=== PATIENT | female | born 1950 | race Caucasian/White ===

== ENCOUNTER 2018-10-09 21:04 | Inpatient (IN) | payer MEDICARE ==
[~2018-10-09] VITALS: Ht 172.7 cm; Wt 79.5 kg
[2018-10-09] MEDS ORDERED: NORepinephrine 8mg/ 250ml NS 250 ML IV PRN ×2 (21:18→22:23)
[2018-10-09] MEDS ORDERED: vancomycin/NS 1 GM ADD-VANTAGE 250 ML IV ONE (21:40)
[2018-10-09] MEDS ORDERED: albumin (human) 25% 100 ML IV solution IV ONE (22:15)
[2018-10-09] MEDS ORDERED: hydrocortisone sod succ/PF 100mg/2ml inj. IV STA (22:16)
[2018-10-09] MEDS ORDERED: normal saline 1000ml 1,000 ML IV PRN (22:23)
[2018-10-09] MEDS ORDERED: morphine 2 MG/ML inj. syringe IV PRN (22:25)
[2018-10-09] MEDS ORDERED: ondansetron/PF 4mg/2ml inj IV PRN (22:25)
[2018-10-09] MEDS ORDERED: acetaminophen 325mg tablet PO PRN ×2 (22:25)
[2018-10-09] MEDS ORDERED: potassium Cl 20mEq/100mL bag 100 ML IV PRN ×2 (22:25)
[2018-10-09] MEDS ORDERED: morphine 4 MG/ML inj SYRINge IV PRN (22:25)
[2018-10-09] MEDS: K, MAG and/or Phos replacement - Verify level? MC SCH (22:25)
[2018-10-09] MEDS ORDERED: potassium Cl 20 mEq SR tablet PO PRN ×2 (22:25)
[2018-10-09 22:39] LABS: ALANINE AMINOTRANSFERASE 60 U/L (12-78); ALBUMIN/GLOBULIN RATIO 0.7 (1.1-1.5); ALKALINE PHOSPHATASE 50 IU/L (46-116); ANION GAP 9 (8-16); ASPARTATE AMINO TRANSFERASE 106 U/L (10-37); BILIRUBIN,TOTAL 0.6 MG/DL (0.1-1.0); BLOOD UREA NITROGEN 15 MG/DL (7-18); BUN/CREATININE RATIO 24.2 (6.6-38.0); CALCIUM 7.5 MG/DL (8.5-10.1); CHLORIDE 87 MMOL/L (99-107); CREATININE 0.62 MG/DL (0.40-0.90); GLUCOSE 95 MG/DL (70-104); POTASSIUM 3.4 MMOL/L (3.5-5.1); TOTAL CARBON DIOXIDE 21.9 MMOL/L (24-32); eGFR > 90 ML/MIN
[2018-10-09 22:44] LABS: SODIUM 118 MMOL/L (135-145)
[2018-10-09] MEDS: normal saline 1000ml 1,000 ML IV SCH (22:47)
--- NOTE | 2018-10-09 23:00 | NUR ---
recieved report from ruth PRINCE stated he will be up in 30 minutes after taking pictures of patients wounds
[2018-10-09 23:57] LABS: HEMOGLOBIN A1C 4.8 % (4.5-6.2)
[2018-10-10] VITALS (23 sets, daily range): BP systolic 91–149; BP diastolic 40–79
--- NOTE | 2018-10-10 00:15 | NUR ---
Patient in room ICU 2044. I have received report from STOCKLAYER and had the opportunity to ask questions and assume patient care along with Adalberto PRINCE.
--- NOTE | 2018-10-10 01:14 | NUR ---
patient had bed bath dressings applied to wounds with cream blankets on rr even un labored no observable s/s of acute stress at this time
[2018-10-10] MEDS ORDERED: ENAL20TA PO (01:58)
[2018-10-10] MEDS: hydrocortisone sod succ/PF 100mg/2ml inj. IV SCH ×4 (02:14→21:51)
[2018-10-10 03:39] LABS: BASOPHILS # (AUTO) 0.3 X10'3 (0-0.2); BASOPHILS % (AUTO) 1.4 % (0-1); EOSINOPHILS % (AUTO) 0 % (0-6); HEMATOCRIT 35.1 % (35.0-45.0); HEMOGLOBIN 12.1 g/dl (12.0-16.0); LYMPHOCYTES # (AUTO) 0.3 X10'3 (1.1-4.8); LYMPHOCYTES % (AUTO) 1.6 % (21-51); MEAN CORPUSCULAR HEMOGLOBIN 38.7 PG (27.0-31.0); MEAN CORPUSCULAR HGB CONC 34.3 g/dL (33.0-36.5); MEAN CORPUSCULAR VOLUME 112.6 FL (78-98); MEAN PLATELET VOLUME 9.3 FL (7.4-10.4); MONOCYTES # (AUTO) 0.5 X10'3 (0-0.9); MONOCYTES % (AUTO) 2.5 % (2-12); NEUTROPHILS # (AUTO) 17.2 X10'3 (1.8-7.7); NEUTROPHILS % (AUTO) 94.5 % (42-75); PLATELET COUNT 248 X10'3 (140-440); RED BLOOD COUNT 3.12 X10'6 (4.20-5.60); RED CELL DISTRIBUTION WIDTH 14.6 % (11.5-14.5); WHITE BLOOD COUNT 18.2 X10'3 (4.5-11.0)
[2018-10-10 03:51] LABS: ALANINE AMINOTRANSFERASE 55 U/L (12-78); ALBUMIN/GLOBULIN RATIO 1.2 (1.1-1.5); ALKALINE PHOSPHATASE 41 IU/L (46-116); ANION GAP 9 (8-16); ASPARTATE AMINO TRANSFERASE 95 U/L (10-37); BILIRUBIN,TOTAL 0.9 MG/DL (0.1-1.0); BLOOD UREA NITROGEN 11 MG/DL (7-18); BUN/CREATININE RATIO 20.4 (6.6-38.0); CALCIUM 7.9 MG/DL (8.5-10.1); CHLORIDE 96 MMOL/L (99-107); CREATININE 0.54 MG/DL (0.40-0.90); GLUCOSE 112 MG/DL (70-104); MAGNESIUM 1.7 MG/DL (1.5-2.4); PHOSPHORUS 3.3 MG/DL (2.3-4.5); POTASSIUM 3.4 MMOL/L (3.5-5.1); SODIUM 128 MMOL/L (135-145); TOTAL CARBON DIOXIDE 23.2 MMOL/L (24-32); TOTAL PROTEIN 5.5 G/DL (6.4-8.2); eGFR > 90 ML/MIN
[2018-10-10 04:14] LABS: PLATELET ESTIMATE NORMAL
[2018-10-10 04:15] LABS: LARGE PLATELETS FEW
[2018-10-10] MEDS: normal saline 1000ml 1,000 ML IV SCH (05:28)
[2018-10-10] MEDS: sodium chloride 0.45% 1,000 ML IV SCH ×2 (05:37→23:48)
--- NOTE | 2018-10-10 06:07 | NUR ---
patient has been observably resting well, eyes closed rr even un labored no s/s of acute stress at this time
--- NOTE | 2018-10-10 06:32 | NUR ---
SBAR OFF TO AZEB RN REPRIORITIZED PATIENTS NEEDS AND DX NO QUESTIONS OR CONCERNS FROM AZEB RN AFTER REPORT
--- NOTE | 2018-10-10 06:35 | NUR ---
Patient in room ICU 2044. I have received report from Adalberto PRINCE and had the opportunity to ask questions and assume patient care.
--- NOTE | 2018-10-10 06:40 | NUR ---
Problems reprioritized. Patient report given, questions answered & plan of care reviewed with Jeni PRINCE.
[2018-10-10] MEDS: K, MAG and/or Phos replacement - Verify level? MC SCH (07:21)
[2018-10-10] MEDS: pantoprazole 40mg Tablet.DR PO SCH (07:56)
[2018-10-10] MEDS: vancomycin/NS 1 GM ADD-VANTAGE 250 ML IV SCH ×2 (07:56→16:09)
[2018-10-10] MEDS: heparin, porcine 5000 units/ml vial SQ SCH ×2 (07:57→21:52)
[2018-10-10] MEDS ORDERED: pneumococcal 23-VAL P-sac vacc 25 mcg/0.5ml vial IMVAC ONE (10:00)
[2018-10-10] MEDS ORDERED: magnesium 2GM in 50ml NS 50 ML IV ONE (10:05)
[2018-10-10] MEDS ORDERED: thiamine inj. 100 MG in normal saline 100ml IV soln 99 ML IV ONE (10:05)
[2018-10-10 10:25] LABS: ALBUMIN 2.5 G/DL (3.4-5.0); ANION GAP 11 (8-16); BLOOD UREA NITROGEN 8 MG/DL (7-18); BUN/CREATININE RATIO 17.8 (6.6-38.0); CALCIUM 7.4 MG/DL (8.5-10.1); CHLORIDE 103 MMOL/L (99-107); CREATININE 0.45 MG/DL (0.40-0.90); GLUCOSE 112 MG/DL (70-104); SODIUM 136 MMOL/L (135-145); TOTAL CARBON DIOXIDE 21.9 MMOL/L (24-32); eGFR > 90 ML/MIN
[2018-10-10 10:33] LABS: PHOSPHORUS 2.3 MG/DL (2.3-4.5); POTASSIUM 3.9 MMOL/L (3.5-5.1)
[2018-10-10] MEDS: MVI, adult No.4 with vit. K 10 ML in dextrose 5% water 500ml 490 ML IV SCH ×2 (10:52)
--- NOTE | 2018-10-10 10:55 | NUR ---
Ye Catheter D/C'd, patient tolerated well.
[2018-10-10 11:05] LABS: CLARITY,URINE SLIGHTLY CLOUDY (Clear); GLUCOSE, URINE NEGATIVE (Neg); KETONES,URINE >=80 mg/dl (Neg); LEUKOCYTE ESTERASE ,URINE NEGATIVE (Neg); NITRITES, URINE NEGATIVE (Neg); OCCULT BLOOD,URINE SMALL (Neg); PH,URINE 5.5 (4.8-8.0); PROTEIN,URINE NEGATIVE (Neg); UROBILINOGEN,URINE 0.2 E.U/dL (0.2-1.0)
[2018-10-10 11:15] LABS: COLOR,URINE DARK YELLOW (Yellow); UA COLLECTION TYPE NON-SPECIFIED
[2018-10-10 11:17] LABS: BACTERIA,URINE 1+ /HPF (Neg); RBC,URINE 0-2 /HPF (0-2); WBC,URINE 0-4 /HPF (0-4)
[2018-10-10 11:18] LABS: AMORPHOUS URATES 1+; MUCUS STRANDS FEW /LPF (Neg); SQUAMOUS EPITHELIAL CELL,UR MODERATE /LPF (FEW); TRANSITIONAL EPI CELLS,URINE FEW /HPF
--- NOTE | 2018-10-10 12:10 | NUR ---
Wound consult: Pt admit w/ septic shock and cellulitis/IAD to sacrum/butt. No open wounds noted. Pt found down at home in urine/feces unable to move past 2 weeks r/t weakness. DX septic shock. Per MD pt lost SO 1 week ago. Pt reports only drinking boxed wine for intake past 2 weeks. MCV 112.6 to start banana bag today per MD for etoh protocol. Na 128 up from 118 on admit. Pt advanced to regular diet from NPO w/ LBM 10/10. Will continue to monitor for additional protein needs and PO tolerance on etoh withdrawal protocol. Rec: 1. continue regular diet 2. monitor for additional protein needs pending PO 3. wt per rx Addendum: 10/10/18 at [address] Amended: Links added.
--- NOTE | 2018-10-10 13:44 | NUR ---
PRESSURE ULCER EDUCATION: DEFINITION: A pressure ulcer is an area of skin that breaks down when you stay in one position too long. The constant pressure against the skin reduces the blood flow to that area and the affected tissue dies. CAUSES: "Being bedridden or in a wheelchair "Fragile skin "Having a chronic condition, such as diabetes or vascular disease "Inability to move certain parts of your body without assistance "Older age "Incontinence of urine or stool SYMPTOMS: "A reddened area that DOES NOT turn white when pressed on - this can be the beginning of a pressure ulcer "A blister, deep sore or a crater - these can be advanced pressure ulcers FIRST AID: "Relieve the pressure on this area "Keep the area clean and dry "Call your primary doctor if you see any of the above symptoms "DO NOT massage the area "DO NOT use a donut shaped or ring shaped pillow- these actually interfere with the blood flow and cause complications PREVENTION: "Check for pressure ulcers everyday "Change position at least every two hours to relieve pressure "Use items that help relieve pressure- pillows, sheepskin, foam padding, and powders. "Keep skin clean and dry "Eat healthy well balanced meals "Exercise daily IF YOU SEE ANY OF THESE SYMPTOMS WHILE IN THE HOSPITAL - TELL YOUR NURSE IMMEDIATELY. IF YOU SEE ANY OF THESE SYMPTOMS WHILE AT HOME OR HAVE ANY QUESTIONS OR CONCERNS ABOUT PRESSURE ULCERS - CALL YOUR PRIMARY DOCTOR IMMEDIATELY. Addendum: 10/10/18 at 1344 by Maritza Servin RN Amended: Links added.
--- NOTE | 2018-10-10 14:25 | NUR ---
Patient is A&Ox4 at this time, blood pressure tolerating on it's own relatively well. Pressors have been shut off since 0900 and pressures are still systolically 90-110s.
--- NOTE | 2018-10-10 16:12 | NUR ---
Patient had an incident of incontinence, however she states that she still feels pressure. Bladder scanned and 296mL retained.
[2018-10-10 16:25] LABS: ALBUMIN 2.3 G/DL (3.4-5.0); ANION GAP 5 (8-16); BLOOD UREA NITROGEN 10 MG/DL (7-18); BUN/CREATININE RATIO 17.9 (6.6-38.0); CALCIUM 7.7 MG/DL (8.5-10.1); CHLORIDE 99 MMOL/L (99-107); CREATININE 0.56 MG/DL (0.40-0.90); GLUCOSE 225 MG/DL (70-104); PHOSPHORUS 1.6 MG/DL (2.3-4.5); POTASSIUM 3.4 MMOL/L (3.5-5.1); SODIUM 130 MMOL/L (135-145); TOTAL CARBON DIOXIDE 26.2 MMOL/L (24-32); eGFR > 90 ML/MIN
[2018-10-10] MEDS ORDERED: CefTRIAXone 2gm/D5W 50ml 50 ML IV SCH (18:00)
--- NOTE | 2018-10-10 18:30 | NUR ---
Patient in room ICU 2044. I have received report from Jeni PRINCE and had the opportunity to ask questions and assume patient care along with Adalberto PRINCE.
--- NOTE | 2018-10-10 18:32 | NUR ---
Problems reprioritized. Patient report given, questions answered & plan of care reviewed with Adalberto PRINCE and Mariza PRINCE.
--- NOTE | 2018-10-10 18:46 | NUR ---
assumed care and report from candelaria durán
--- NOTE | 2018-10-10 18:47 | NUR ---
patient currently eating dinner no s/s of acute stress at this time
--- NOTE | 2018-10-10 19:55 | NUR ---
PATIENT ON BED GOYAL CALL LIGHT IN REACH NO OBSERVABLE S/S OF ACUTE STRESS AT THIS TIME
--- NOTE | 2018-10-10 20:45 | NUR ---
PATIENT COMPLAINING OF BLADDER PAIN, BLADDER SCANNER SHOWED 737mL STRAIGHT CATHED 700 OUTPUT
[2018-10-10 21:18] LABS: ALBUMIN 2.2 G/DL (3.4-5.0); ANION GAP 5 (8-16); BLOOD UREA NITROGEN 10 MG/DL (7-18); BUN/CREATININE RATIO 20.4 (6.6-38.0); CALCIUM 7.4 MG/DL (8.5-10.1); CHLORIDE 103 MMOL/L (99-107); CREATININE 0.49 MG/DL (0.40-0.90); GLUCOSE 120 MG/DL (70-104); PHOSPHORUS 1.5 MG/DL (2.3-4.5); POTASSIUM 3.5 MMOL/L (3.5-5.1); SODIUM 134 MMOL/L (135-145); TOTAL CARBON DIOXIDE 25.6 MMOL/L (24-32); eGFR > 90 ML/MIN
[2018-10-10] MEDS: lactobacillus rhamnosus 10,000 MMU CELLS/CAPSULE PO SCH (21:52)
[2018-10-10] MEDS ORDERED: VANCOMYCIN LEVEL IV NR (23:30)
[2018-10-11] VITALS (24 sets, daily range): BP systolic 90–125; BP diastolic 47–76
[2018-10-11] MEDS: vancomycin/NS 1 GM ADD-VANTAGE 250 ML IV SCH ×2 (00:21→08:24)
[2018-10-11] MEDS: hydrocortisone sod succ/PF 100mg/2ml inj. IV SCH ×4 (02:12→19:57)
[2018-10-11 03:27] LABS: BASOPHILS % (AUTO) 0.1 % (0-1); EOSINOPHILS % (AUTO) 0.1 % (0-6); HEMATOCRIT 27.7 % (35.0-45.0); HEMOGLOBIN 9.7 g/dl (12.0-16.0); LYMPHOCYTES # (AUTO) 0.5 X10'3 (1.1-4.8); LYMPHOCYTES % (AUTO) 3.7 % (21-51); MEAN CORPUSCULAR HEMOGLOBIN 39.6 PG (27.0-31.0); MONOCYTES # (AUTO) 0.5 X10'3 (0-0.9); MONOCYTES % (AUTO) 3.8 % (2-12); NEUTROPHILS % (AUTO) 92.3 % (42-75); PLATELET COUNT 199 X10'3 (140-440); RED BLOOD COUNT 2.45 X10'6 (4.20-5.60); RED CELL DISTRIBUTION WIDTH 14.8 % (11.5-14.5); WHITE BLOOD COUNT 14.1 X10'3 (4.5-11.0)
--- NOTE | 2018-10-11 03:27 | NUR ---
PATIENT IN BED EYES CLOSED COVERS ON RR EVEN UN LABORED NO S/S OF ACUTE STRESS AT THIS TIME
[2018-10-11 03:39] LABS: ALANINE AMINOTRANSFERASE 40 U/L (12-78); ALBUMIN 2.1 G/DL (3.4-5.0); ALBUMIN/GLOBULIN RATIO 0.9 (1.1-1.5); ALKALINE PHOSPHATASE 34 IU/L (46-116); AMYLASE 25 U/L (25-115); ANION GAP 6 (8-16); ASPARTATE AMINO TRANSFERASE 49 U/L (10-37); BILIRUBIN,TOTAL 0.4 MG/DL (0.1-1.0); BLOOD UREA NITROGEN 5 MG/DL (7-18); BUN/CREATININE RATIO 10.9 (6.6-38.0); CALCIUM 7.6 MG/DL (8.5-10.1); CHLORIDE 103 MMOL/L (99-107); CREATININE 0.46 MG/DL (0.40-0.90); GLUCOSE 117 MG/DL (70-104); LIPASE 117 U/L (73-393); MAGNESIUM 2.1 MG/DL (1.5-2.4); PHOSPHORUS 1.8 MG/DL (2.3-4.5); POTASSIUM 3.5 MMOL/L (3.5-5.1); SODIUM 136 MMOL/L (135-145); TOTAL CARBON DIOXIDE 26.6 MMOL/L (24-32); TOTAL PROTEIN 4.5 G/DL (6.4-8.2); eGFR > 90 ML/MIN
--- NOTE | 2018-10-11 05:30 | NUR ---
PATIENT WAS PUT ON BED GOYAL UNABLE TO PRODUCE BM, TURNED PATIENT AND REPLACED WOUND DRESSINGS, PATIENT IN NO OBSERVABLE ACUTE STRESS AT THIS TIME
--- NOTE | 2018-10-11 06:25 | NUR ---
Problems reprioritized. Patient report given, questions answered & plan of care reviewed with Court PRINCE.
--- NOTE | 2018-10-11 06:32 | NUR ---
Patient in room ICU 2044. I have received report from Adalberto PRINCE and had the opportunity to ask him questions and assume patient care.
[2018-10-11] MEDS: K, MAG and/or Phos replacement - Verify level? MC SCH (06:45)
--- NOTE | 2018-10-11 06:47 | NUR ---
Pharmacy notified per pt. phos of 1.8. Pharmacist said to notify provider for replacement.
[2018-10-11] MEDS: pantoprazole 40mg Tablet.DR PO SCH (08:24)
[2018-10-11] MEDS: lactobacillus rhamnosus 10,000 MMU CELLS/CAPSULE PO SCH ×2 (08:24→19:57)
[2018-10-11] MEDS: heparin, porcine 5000 units/ml vial SQ SCH ×2 (08:25→19:57)
[2018-10-11] MEDS: MVI, adult No.4 with vit. K 10 ML in dextrose 5% water 500ml 490 ML IV SCH ×2 (08:25)
[2018-10-11] MEDS ORDERED: potassium phosphate inj 15 MMOL in normal saline 250ml IV soln 250 ML IV ONE (12:50)
--- NOTE | 2018-10-11 16:53 | NUR ---
Patient in room ICU 2044. I have received report from SURESH FERNANDEZ and had the opportunity to ask questions and assume patient care.
[2018-10-11] MEDS ORDERED: MVI, adult No.4 with vit. K 10 ML in dextrose 5% water 500ml 500 ML IV SCH ×2 (18:30)
[2018-10-11] MEDS ORDERED: thiamine inj. 100 MG in normal saline 100ml IV soln 100 ML IV ONE (18:30)
[2018-10-11] MEDS ORDERED: haloperidol 5mg tablet PO PRN ×2 (18:30)
[2018-10-11] MEDS ORDERED: LORazepam 2 mg/ml vial IV PRN ×2 (18:30)
[2018-10-11] MEDS ORDERED: haloperidol lactate 5mg/ml inj IM PRN ×2 (18:30)
[2018-10-11] MEDS ORDERED: LORazepam 1 MG tablet PO PRN (18:30)
--- NOTE | 2018-10-11 18:30 | NUR ---
Patient in room ICU 2044. I have received report from Court PRINCE and had the opportunity to ask questions and assume patient care. Pt HR irregular, in the 100's, BP stable, awake, answering questions.
[2018-10-11] MEDS ORDERED: metoprolol tartrate 1mg/ml inj IV ONE (18:40)
--- NOTE | 2018-10-11 21:15 | NUR ---
Pt's rhythm unchanged after Lopressor. BP stable. Straight cath output:400mL. Will continue to monitor.
[2018-10-12] VITALS (13 sets, daily range): BP systolic 105–131; BP diastolic 60–91
[2018-10-12] MEDS: hydrocortisone sod succ/PF 100mg/2ml inj. IV SCH ×3 (02:42→14:37)
[2018-10-12 03:01] LABS: ALANINE AMINOTRANSFERASE 54 U/L (12-78); ALBUMIN 2.3 G/DL (3.4-5.0); ALBUMIN/GLOBULIN RATIO 0.9 (1.1-1.5); ALKALINE PHOSPHATASE 38 IU/L (46-116); AMYLASE 26 U/L (25-115); ANION GAP 10 (8-16); ASPARTATE AMINO TRANSFERASE 39 U/L (10-37); BILIRUBIN,TOTAL 0.4 MG/DL (0.1-1.0); BLOOD UREA NITROGEN 11 MG/DL (7-18); BUN/CREATININE RATIO 22.4 (6.6-38.0); CHLORIDE 98 MMOL/L (99-107); CREATININE 0.49 MG/DL (0.40-0.90); GLUCOSE 127 MG/DL (70-104); LIPASE 122 U/L (73-393); MAGNESIUM 1.8 MG/DL (1.5-2.4); PHOSPHORUS 2.1 MG/DL (2.3-4.5); POTASSIUM 3.6 MMOL/L (3.5-5.1); SODIUM 133 MMOL/L (135-145); TOTAL CARBON DIOXIDE 24.9 MMOL/L (24-32); TOTAL PROTEIN 4.9 G/DL (6.4-8.2); eGFR > 90 ML/MIN
[2018-10-12 03:04] LABS: BASOPHILS % (AUTO) 0.1 % (0-1); EOSINOPHILS % (AUTO) 0.1 % (0-6); HEMATOCRIT 30.2 % (35.0-45.0); HEMOGLOBIN 10.2 g/dl (12.0-16.0); LYMPHOCYTES # (AUTO) 0.9 X10'3 (1.1-4.8); LYMPHOCYTES % (AUTO) 6.6 % (21-51); MEAN CORPUSCULAR HEMOGLOBIN 38.5 PG (27.0-31.0); MEAN CORPUSCULAR HGB CONC 33.9 g/dL (33.0-36.5); MEAN CORPUSCULAR VOLUME 113.6 FL (78-98); MEAN PLATELET VOLUME 8.8 FL (7.4-10.4); MONOCYTES # (AUTO) 0.8 X10'3 (0-0.9); MONOCYTES % (AUTO) 5.6 % (2-12); NEUTROPHILS # (AUTO) 12.3 X10'3 (1.8-7.7); NEUTROPHILS % (AUTO) 87.6 % (42-75); PLATELET COUNT 235 X10'3 (140-440); RED BLOOD COUNT 2.66 X10'6 (4.20-5.60); RED CELL DISTRIBUTION WIDTH 14.5 % (11.5-14.5); WHITE BLOOD COUNT 14.1 X10'3 (4.5-11.0)
--- NOTE | 2018-10-12 06:32 | NUR ---
Problems reprioritized. Patient report given, questions answered & plan of care reviewed with Court PRINCE.
[2018-10-12] MEDS: K, MAG and/or Phos replacement - Verify level? MC SCH (06:39)
--- NOTE | 2018-10-12 06:45 | NUR ---
Report received from CREDIT PRODUCT ANALYSTCourt
[2018-10-12] MEDS ORDERED: thiamine inj. 100 MG, folic acid inj. 2 MG in normal saline 100ml IV soln 100 ML IV ONE (08:00)
[2018-10-12] MEDS: lactobacillus rhamnosus 10,000 MMU CELLS/CAPSULE PO SCH ×2 (08:05→20:35)
[2018-10-12] MEDS: pantoprazole 40mg Tablet.DR PO SCH (08:05)
[2018-10-12] MEDS: folic acid 1mg tablet PO SCH (08:05)
[2018-10-12] MEDS: multivitamins, therapeutics tablet PO SCH (08:05)
[2018-10-12] MEDS: thiamine 100mg tablet PO SCH (08:05)
[2018-10-12] MEDS: atenolol 50mg tablet PO SCH (08:06)
[2018-10-12] MEDS: heparin, porcine 5000 units/ml vial SQ SCH ×2 (08:06→20:36)
--- NOTE | 2018-10-12 09:25 | NUR ---
Pt arrived to room 346A from ICU.
[2018-10-12] MEDS ORDERED: CefTRIAXone/D5W-Rocephin 1gm 50 ML IV SCH (09:40)
[2018-10-12] MEDS ORDERED: iohexol 300mg/ml 100ml inj. ONE (15:13)
--- NOTE | 2018-10-12 18:40 | NUR ---
Problems reprioritized. Patient report given, questions answered & plan of care reviewed with SURESH Poole.
--- NOTE | 2018-10-12 18:45 | NUR ---
Patient in room CARL 346. I have received report from Christy Mckeon and had the opportunity to ask questions and assume patient care. Addendum: 10/12/18 at 1926 by Zulema Vera RN Amended: Links added.
--- NOTE | 2018-10-12 20:23 | NUR ---
pt now has camila zamudio since 1699 Addendum: 10/12/18 at 2023 by Zulema Vera RN Amended: Links added.
[2018-10-13] VITALS: BP 113/80
--- NOTE | 2018-10-13 00:26 | NUR ---
talked to Dr Mendoza about pt labs before blood given etc. pt resting sats 94% at this time. Addendum: 10/13/18 at 0027 by Zulema Vera RN info on different pt this is the wrong one charted on. pt resting no changes.
--- NOTE | 2018-10-13 02:05 | NUR ---
pt repositioned in bed for comfort tolerated well.
--- NOTE | 2018-10-13 02:30 | NUR ---
pt wanted to wait for lab draw results. Addendum: 10/13/18 at 0600 by Zulema Vera RN Amended: Links added.
--- NOTE | 2018-10-13 04:00 | NUR ---
pt repositioned in bed skin care zamudio care done. tolerated well.
--- NOTE | 2018-10-13 05:30 | NUR ---
positioned to comfort no complaints.
[2018-10-13 05:54] LABS: BASOPHILS % (AUTO) 0.3 % (0-1); EOSINOPHILS % (AUTO) 0.3 % (0-6); HEMATOCRIT 33.9 % (35.0-45.0); HEMOGLOBIN 11.6 g/dl (12.0-16.0); LYMPHOCYTES # (AUTO) 2.8 X10'3 (1.1-4.8); LYMPHOCYTES % (AUTO) 18.9 % (21-51); MEAN CORPUSCULAR HGB CONC 34.2 g/dL (33.0-36.5); MEAN CORPUSCULAR VOLUME 113.9 FL (78-98); MEAN PLATELET VOLUME 9.3 FL (7.4-10.4); MONOCYTES # (AUTO) 1.1 X10'3 (0-0.9); MONOCYTES % (AUTO) 7.2 % (2-12); NEUTROPHILS # (AUTO) 10.8 X10'3 (1.8-7.7); NEUTROPHILS % (AUTO) 73.3 % (42-75); PLATELET COUNT 262 X10'3 (140-440); RED BLOOD COUNT 2.97 X10'6 (4.20-5.60); WHITE BLOOD COUNT 14.7 X10'3 (4.5-11.0)
[2018-10-13 06:08] LABS: ALANINE AMINOTRANSFERASE 82 U/L (12-78); ALBUMIN 2.5 G/DL (3.4-5.0); ALBUMIN/GLOBULIN RATIO 0.9 (1.1-1.5); ALKALINE PHOSPHATASE 40 IU/L (46-116); AMYLASE 32 U/L (25-115); ANION GAP 8 (8-16); ASPARTATE AMINO TRANSFERASE 46 U/L (10-37); BILIRUBIN,TOTAL 0.4 MG/DL (0.1-1.0); BLOOD UREA NITROGEN 11 MG/DL (7-18); BUN/CREATININE RATIO 26.2 (6.6-38.0); CALCIUM 8.6 MG/DL (8.5-10.1); CHLORIDE 100 MMOL/L (99-107); CREATININE 0.42 MG/DL (0.40-0.90); GLUCOSE 101 MG/DL (70-104); LIPASE 149 U/L (73-393); PHOSPHORUS 2.1 MG/DL (2.3-4.5); POTASSIUM 3.6 MMOL/L (3.5-5.1); SODIUM 134 MMOL/L (135-145); TOTAL CARBON DIOXIDE 26.4 MMOL/L (24-32); TOTAL PROTEIN 5.4 G/DL (6.4-8.2); eGFR > 90 ML/MIN
--- NOTE | 2018-10-13 06:10 | NUR ---
Problems reprioritized. Patient report given, questions answered & plan of care reviewed with Guevara Mckeon. Addendum: 10/13/18 at 0611 by Zulema Vera RN Amended: Links added.
--- NOTE | 2018-10-13 06:45 | NUR ---
Patient in room CARL 346. I have received report from SURESH GARRETT and had the opportunity to ask questions and assume patient care.
[2018-10-13 07:00] VITALS: BP 100/72
[2018-10-13] MEDS: multivitamins, therapeutics tablet PO SCH (07:38)
[2018-10-13] MEDS: lactobacillus rhamnosus 10,000 MMU CELLS/CAPSULE PO SCH (07:38)
[2018-10-13] MEDS: thiamine 100mg tablet PO SCH (07:39)
[2018-10-13] MEDS: pantoprazole 40mg Tablet.DR PO SCH (07:39)
[2018-10-13] MEDS: folic acid 1mg tablet PO SCH (07:40)
[2018-10-13] MEDS: atenolol 50mg tablet PO SCH (07:41)
[2018-10-13] MEDS: heparin, porcine 5000 units/ml vial SQ SCH (07:42)
[2018-10-13] MEDS: K, MAG and/or Phos replacement - Verify level? MC SCH (08:00)
[2018-10-13] MEDS ORDERED: CefTRIAXone/D5W-Rocephin 1gm 50 ML IV ONE (09:05)
[2018-10-13 11:00] VITALS: BP 94/52
--- NOTE | 2018-10-13 13:37 | NUR ---
reassessment: Pt PO 50-75% avg meals fluctuates up to 100% meeting needs. LBM 10/10. On thiamin/MVI/folic for etoh. Will continue to monitor. Rec: 1. continue regular diet 2. MVI/thiamin/folic for etoh 3. wt per rx Addendum: 10/13/18 at [address] Amended: Links added.
[2018-10-13 16:37] VITALS: BP 101/65
--- NOTE | 2018-10-13 16:38 | NUR ---
Called to [facility] and report given to Nurse Yojana. Patient is ready for dc and is awaiting [facility] for transport. Patient's home med stored in pharmacy given back to patient.
--- NOTE | 2018-10-13 16:50 | NUR ---
patient dc'd with all personal belongings in [facility] via [facility] to [facility], accompanied by x2 [facility] [employer] staff.
[2018-10-14] MEDS ORDERED: CefTRIAXone/D5W-Rocephin 1gm 50 ML IV SCH (08:00)
== END 2018-10-13 16:51 | DRG 871 ==
LOC: ER 21:05 → ICU 2S 23:50 → CMPBEDREQ 10-10 00:09 → SUR 3N 10-12 09:20
PROVIDERS: ADMIT Internal Medicine Critical Care Medicine; ATTEND Family Medicine
PROC: 06HY33Z Insertion of Infusion Device into Lower Vein, Percutaneous Approach (ICD-10-PCS; principal; 2018-10-09)
PROC: 3E0234Z Introduction of Serum, Toxoid and Vaccine into Muscle, Percutaneous Approach (ICD-10-PCS; 2018-10-10)
DX: A41.9 Sepsis, unspecified organism (principal); E43 Unspecified severe protein-calorie malnutrition; E87.1 Hypo-osmolality and hyponatremia; L03.317 Cellulitis of buttock; R20.2 Paresthesia of skin; E83.51 Hypocalcemia; G62.9 Polyneuropathy, unspecified; D64.9 Anemia, unspecified; L89.320 Pressure ulcer of left buttock, unstageable; L89.310 Pressure ulcer of right buttock, unstageable; F10.20 Alcohol dependence, uncomplicated; E87.6 Hypokalemia; G31.2 Degeneration of nervous system due to alcohol; I10 Essential (primary) hypertension; L89.159 Pressure ulcer of sacral region, unspecified stage; R74.0 Nonspecific elevation of levels of transaminase and lactic acid dehydrogenase [LDH]; Z68.26 Body mass index [BMI] 26.0-26.9, adult; Z23 Encounter for immunization; Z71.41 Alcohol abuse counseling and surveillance of alcoholic
CPT/HCPCS: 36415; 70470; 71045; 80053; 80069; 80202; 81001; 82150; 82607; 82948; 83036; 83690; 83735; 84100; 84145; 85025; 85610; 87040; 87081; 90732; 93005; 96365; 96366; 96368; 96375; 97110; 97116; 97161; 97530; 99291; G0378; J0696; J1644; J1720; J3370; J3411; J3475; J3480; J3490; J7050; J7060; P9047; Q9967

== ENCOUNTER 2018-10-17 15:47 | Inpatient (IN) | payer MEDICARE ==
[~2018-10-17] VITALS: Ht 170.2 cm; Wt 77.3 kg
[~2018-10-17 15:47] MED LIST: ENAL20TA PO
[2018-10-17] MEDS ORDERED: HYDROcodone/acetaminophen 5mg/325mg tablet PO PRN (17:00)
[2018-10-17 17:10] LABS: BASOPHILS # (AUTO) 0.1 X10'3 (0-0.2); BASOPHILS % (AUTO) 0.9 % (0-1); EOSINOPHILS # (AUTO) 0.2 X10'3 (0-0.9); EOSINOPHILS % (AUTO) 1.8 % (0-6); HEMATOCRIT 32.7 % (35.0-45.0); HEMOGLOBIN 11.5 g/dl (12.0-16.0); LYMPHOCYTES # (AUTO) 1.6 X10'3 (1.1-4.8); LYMPHOCYTES % (AUTO) 17.9 % (21-51); MEAN CORPUSCULAR HEMOGLOBIN 39.4 PG (27.0-31.0); MEAN CORPUSCULAR VOLUME 112.4 FL (78-98); MEAN PLATELET VOLUME 8.5 FL (7.4-10.4); MONOCYTES # (AUTO) 0.7 X10'3 (0-0.9); MONOCYTES % (AUTO) 7.8 % (2-12); NEUTROPHILS # (AUTO) 6.5 X10'3 (1.8-7.7); NEUTROPHILS % (AUTO) 71.6 % (42-75); PLATELET COUNT 355 X10'3 (140-440); RED BLOOD COUNT 2.91 X10'6 (4.20-5.60); RED CELL DISTRIBUTION WIDTH 15.2 % (11.5-14.5); WHITE BLOOD COUNT 9.1 X10'3 (4.5-11.0)
[2018-10-17] MEDS ORDERED: THIA100T66 PO (17:10)
[2018-10-17] MEDS ORDERED: ACET-2119 PO (17:10)
[2018-10-17] MEDS ORDERED: ATEN50TA PO (17:10)
[2018-10-17] MEDS ORDERED: PANT-47 PO (17:10)
[2018-10-17] MEDS ORDERED: CEFD300C3 PO (17:10)
[2018-10-17 17:18] LABS: PARTIAL THROMBOPLASTIN TIME 28 SECONDS (22-32)
[2018-10-17 17:22] LABS: ALANINE AMINOTRANSFERASE 46 U/L (12-78); ALBUMIN 2.1 G/DL (3.4-5.0); ALBUMIN/GLOBULIN RATIO 0.7 (1.1-1.5); ALKALINE PHOSPHATASE 53 IU/L (46-116); ANION GAP 6 (8-16); ASPARTATE AMINO TRANSFERASE 20 U/L (10-37); BILIRUBIN,TOTAL 0.4 MG/DL (0.1-1.0); BLOOD UREA NITROGEN 7 MG/DL (7-18); BUN/CREATININE RATIO 13.2 (6.6-38.0); CALCIUM 7.7 MG/DL (8.5-10.1); CHLORIDE 104 MMOL/L (99-107); CREATININE 0.53 MG/DL (0.40-0.90); GLUCOSE 92 MG/DL (70-104); POTASSIUM 3.1 MMOL/L (3.5-5.1); SODIUM 139 MMOL/L (135-145); TOTAL CARBON DIOXIDE 28.9 MMOL/L (24-32); eGFR > 90 ML/MIN
--- NOTE | 2018-10-17 17:26 | NUR ---
DISCONTINUED EXISTING WALKER CATH: PERINEAL AREA WITH COPIOUS WHITE DISCHARGE MIXED WITH FECAL MATERIAL AROUND WALKER. GROIN CHAFFED AND REDDENED WITH SIGNIFICANT BRUISING ON RIGHT
[2018-10-17] MEDS ORDERED: BISA10SU60 PR (17:37)
[2018-10-17] MEDS ORDERED: MAGN400O6 PO (17:38)
[2018-10-17] MEDS ORDERED: NA P133E4 RC (17:39)
[2018-10-17] MEDS ORDERED: MULT-933 PO (17:39)
[2018-10-17] MEDS ORDERED: ondansetron/PF 4mg/2ml inj IV PRN (17:50)
[2018-10-17] MEDS ORDERED: morphine 2 MG/ML inj. syringe IV PRN (17:50)
[2018-10-17] MEDS ORDERED: magnesium 4gm in 100ml NS 100 ML IV PRN (17:50)
[2018-10-17] MEDS ORDERED: docusate sod 100mg capsule PO PRN (17:50)
[2018-10-17] MEDS ORDERED: potassium CL 10mEq/100ml bag 100 ML IV PRN ×2 (17:50)
[2018-10-17] MEDS ORDERED: potassium Cl 20 mEq SR tablet PO PRN ×2 (17:50)
[2018-10-17] MEDS ORDERED: non-formulary drug (Na Phos,M-B/Na Phos,Di-Ba* (Fleet's Enema*) 1 BOTTLE) RC PRN (17:50)
[2018-10-17] MEDS ORDERED: mag hydrox/Alum hydrox/simeth 30ml oral suspension PO PRN (17:50)
[2018-10-17] MEDS ORDERED: acetaminophen 325mg tablet PO PRN (17:50)
[2018-10-17] MEDS ORDERED: magnesium 2GM in 50ml NS 50 ML IV PRN (17:50)
[2018-10-17 17:53] LABS: CLARITY,URINE CLOUDY (Clear); COLOR,URINE YELLOW (Yellow); GLUCOSE, URINE NEGATIVE (Neg); KETONES,URINE TRACE mg/dl (Neg); LEUKOCYTE ESTERASE ,URINE LARGE (Neg); NITRITES, URINE NEGATIVE (Neg); OCCULT BLOOD,URINE LARGE (Neg); PROTEIN,URINE NEGATIVE (Neg)
[2018-10-17 17:59] LABS: UA COLLECTION TYPE FOLEY CATH
[2018-10-17 18:01] LABS: MUCUS STRANDS MANY /LPF (Neg); SQUAMOUS EPITHELIAL CELL,UR MANY /LPF (FEW)
[2018-10-17 18:03] LABS: TRANSITIONAL EPI CELLS,URINE FEW /HPF; YEAST MODERATE /HPF (NEGATIVE)
[2018-10-17 18:04] LABS: WBC,URINE 50-100 /HPF (0-4)
[2018-10-17 18:05] LABS: BACTERIA,URINE FEW /HPF (Neg)
--- NOTE | 2018-10-17 18:41 | NUR ---
pts was just turned, on q2hr turning schedule, currently denies pain and reports some faint discomfort to her sacral wounds. Photos for admission taken of sacrum and dressings removed for this. Pt requests not to replaced the dressings yet as she is comfortable. Plan to replace when next turned. Awaiting ipa. She reprots she is hungry. Limited code band placed and 2nd rn reviewed Code status.
--- NOTE | 2018-10-17 19:09 | NUR ---
PT GIVEN WARM BLANKET AND UPDATED THAT ANESTHESIOLOGY TECH EXPECTS HER TO HAVE A ROOM SHORTLY. GIVEN WATER, PER DR. JOHNSON PT TO BE NPO AT .
[2018-10-17] MEDS: magnesium hydroxide 30ml (MOM) UD suspension PO SCH (20:00)
[2018-10-17 20:12] LABS: PLATELET ESTIMATE NORMAL
[2018-10-17 21:30] VITALS: BP 86/53
--- NOTE | 2018-10-17 21:30 | NUR ---
Patient in room ORTHO 4009. I have received report from Er re and had the opportunity to ask questions and assume patient care.
[2018-10-17] MEDS: cefpodoxime proxetil 100mg tablet PO SCH (21:48)
[2018-10-18] VITALS (17 sets, daily range): BP systolic 78–114; BP diastolic 46–84
[2018-10-18 06:24] LABS: BASOPHILS # (AUTO) 0.1 X10'3 (0-0.2); BASOPHILS % (AUTO) 0.8 % (0-1); EOSINOPHILS # (AUTO) 0.1 X10'3 (0-0.9); EOSINOPHILS % (AUTO) 1.5 % (0-6); HEMATOCRIT 33.3 % (35.0-45.0); HEMOGLOBIN 11.5 g/dl (12.0-16.0); LYMPHOCYTES # (AUTO) 1.3 X10'3 (1.1-4.8); LYMPHOCYTES % (AUTO) 13.5 % (21-51); MEAN CORPUSCULAR HEMOGLOBIN 38.8 PG (27.0-31.0); MEAN CORPUSCULAR HGB CONC 34.6 g/dL (33.0-36.5); MEAN CORPUSCULAR VOLUME 112.1 FL (78-98); MEAN PLATELET VOLUME 8.7 FL (7.4-10.4); MONOCYTES # (AUTO) 0.6 X10'3 (0-0.9); MONOCYTES % (AUTO) 6.4 % (2-12); NEUTROPHILS # (AUTO) 7.8 X10'3 (1.8-7.7); NEUTROPHILS % (AUTO) 77.8 % (42-75); PLATELET COUNT 360 X10'3 (140-440); RED BLOOD COUNT 2.97 X10'6 (4.20-5.60); RED CELL DISTRIBUTION WIDTH 15.5 % (11.5-14.5)
--- NOTE | 2018-10-18 06:25 | NUR ---
Patient in room ORTHO 4009. I have received report from Brandin PRINCE and had the opportunity to ask questions and assume patient care.
[2018-10-18 06:38] LABS: ALANINE AMINOTRANSFERASE 41 U/L (12-78); ALBUMIN 2.1 G/DL (3.4-5.0); ALBUMIN/GLOBULIN RATIO 0.7 (1.1-1.5); ALKALINE PHOSPHATASE 39 IU/L (46-116); ANION GAP 6 (8-16); ASPARTATE AMINO TRANSFERASE 15 U/L (10-37); BILIRUBIN,TOTAL 0.4 MG/DL (0.1-1.0); BLOOD UREA NITROGEN 8 MG/DL (7-18); BUN/CREATININE RATIO 17.8 (6.6-38.0); CHLORIDE 106 MMOL/L (99-107); CREATININE 0.45 MG/DL (0.40-0.90); GLUCOSE 92 MG/DL (70-104); MAGNESIUM 2.1 MG/DL (1.5-2.4); POTASSIUM 3.6 MMOL/L (3.5-5.1); SODIUM 140 MMOL/L (135-145); TOTAL CARBON DIOXIDE 28.2 MMOL/L (24-32); eGFR > 90 ML/MIN
[2018-10-18 07:34] LABS: PLATELET ESTIMATE NORMAL; SCHISTOCYTES FEW
[2018-10-18] MEDS: cefpodoxime proxetil 100mg tablet PO SCH ×2 (08:00→20:14)
[2018-10-18] MEDS: magnesium hydroxide 30ml (MOM) UD suspension PO SCH ×2 (08:00→20:00)
[2018-10-18] MEDS: pantoprazole 40mg Tablet.DR PO SCH (08:00)
[2018-10-18] MEDS: multivitamins, therapeutics tablet PO SCH (08:00)
[2018-10-18] MEDS ORDERED: atenolol 50mg tablet PO SCH (08:00)
[2018-10-18] MEDS: K and/or MAG REPLACEMENT MC SCH (08:00)
[2018-10-18] MEDS: heparin, porcine 5000 units/ml vial SQ SCH ×2 (08:00)
--- NOTE | 2018-10-18 08:30 | NUR ---
PAGER ID: [phone] MESSAGE: SILVIA [id number] RE: ANITA [id number] EKG DONE, AFIB
[2018-10-18] MEDS: normal saline 1000ml 1,000 ML IV SCH ×2 (08:35→16:16)
[2018-10-18] MEDS: thiamine 100mg tablet PO SCH (08:58)
--- NOTE | 2018-10-18 09:10 | NUR ---
PAGER ID: [phone] MESSAGE: SILVIA Farias9 RE: SERGIO ArleneMarium IS BEING PICKED UP AT [phone] TO GO TO [facility]
--- NOTE | 2018-10-18 11:44 | NUR ---
Pt transported to surgery, gave report to ruth PRINCE
[2018-10-18] MEDS ORDERED: phenylephrine 10mg/ml inj. ONE (12:18)
[2018-10-18] MEDS ORDERED: midazolam 2 mg/2 ml injection ONE ×2 (12:45)
[2018-10-18] MEDS ORDERED: fentaNYL/PF 50MCG/1 ML 2ML syringe ONE (12:45)
[2018-10-18] MEDS ORDERED: ringers solution, lacted 1,000 ML IV SCH (13:47)
[2018-10-18] MEDS ORDERED: morphine 4 MG/ML inj SYRINge IV PRN ×2 (13:50)
[2018-10-18] MEDS ORDERED: meperidine/PF 25mg/ml syringe IV PRN ×3 (13:50)
[2018-10-18] MEDS ORDERED: ondansetron/PF 4mg/2ml inj IV PRN (13:50)
--- NOTE | 2018-10-18 14:35 | NUR ---
Received from OR via BED , accompanied by Anesthesiologist DR GRIFFITH and report given by Anesthesiolgist. PATIENT WAKING UP, DENIES PAIN, V/S WNL, NEUROVASCULAR CHECKS INTACT, RIGHT IJ CL , DRESSING TO LEFT HIP CDI W/ COLD POWDER PACK W/ SCD ON. T8 SENSATIONS
--- NOTE | 2018-10-18 15:10 | NUR ---
Patient in room ORTHO 4009. I have received report from SURESH Yi and had the opportunity to ask questions and assume patient care. Started post-op vitals. Patient complained of left hip pain, gave morphine with minimal pain relief. Contact provider who ordered a one time dose of [place] and continue to monitor pain and post-op vitals.
--- NOTE | 2018-10-18 15:15 | NUR ---
PATIENT A&OX4, DENIES PAIN, V/S WNL, NEUROVASCULAR CHECKS INTACT, RIGHT IJ CL , DRESSING TO LEFT HIP CDI W/ COLD POWDER PACK W/ SCD ON. T8 SENSATIONS, . PATIENT TAKEN TO 4009B WITH ALL BELONGINGS AND HOOKED UP TO MONITORS IN ROOM AND REPORT GIVEN TO TOP DISTRIBUTION EXECUTIVE WHO HAS TAKEN OVER PATIENT CARE. ADMIT
[2018-10-18] MEDS ORDERED: pneumococcal 23-VAL P-sac vacc 25 mcg/0.5ml vial IMVAC ONE (15:25)
[2018-10-18] MEDS: morphine 2 MG/ML inj. syringe IV PRN ×2 (15:58→22:41)
[2018-10-18] MEDS: ceFAZolin 1GM/D5W- ADD-VANTAGE 50 ML IV SCH (16:15)
--- NOTE | 2018-10-18 16:21 | NUR ---
PAGER ID: [phone] MESSAGE: SILVIA [id number] RE: STEF [id number] CAN WE HAVE ORAL PAIN MEDS, MAYBE NORCO?
[2018-10-18] MEDS ORDERED: HYDROcodone/acetaminophen 5mg/325mg tablet PO ONE (16:25)
--- NOTE | 2018-10-18 18:05 | NUR ---
PAGER ID: [phone] MESSAGE: SILVIA [id number] RE: STEF [id number] BP 103/67 HR 102 AFTER NORCO
--- NOTE | 2018-10-18 18:16 | NUR ---
Problems reprioritized. Patient report given, questions answered & plan of care reviewed with SURESH Ghotra.
--- NOTE | 2018-10-18 19:00 | NUR ---
Patient in room ORTHO 4009. I have received report from Meche and Herbie Becker and had the opportunity to ask questions and assume patient care.
--- NOTE | 2018-10-18 19:50 | NUR ---
I notified Brandin PRINCE of elevated heart rate in the 130's per Hand WasherAnahi Sesay.
[2018-10-18] MEDS: apixaban 5mg tablet PO SCH (20:14)
[2018-10-18] MEDS: lactobacillus rhamnosus 10,000 MMU CELLS/CAPSULE PO SCH (20:14)
[2018-10-18] MEDS: HYDROcodone/acetaminophen 5mg/325mg tablet PO PRN (20:18)
[2018-10-19] VITALS (8 sets, daily range): BP systolic 85–99; BP diastolic 51–75
[2018-10-19] MEDS: ceFAZolin 1GM/D5W- ADD-VANTAGE 50 ML IV SCH ×3 (00:04→15:47)
[2018-10-19] MEDS: HYDROcodone/acetaminophen 5mg/325mg tablet PO PRN ×3 (03:29→15:47)
[2018-10-19] MEDS: morphine 2 MG/ML inj. syringe IV PRN ×2 (05:52→09:36)
--- NOTE | 2018-10-19 06:00 | NUR ---
Patient in room ORTHO 4009. I have received report from Brandin PRINCE and had the opportunity to ask questions and assume patient care.
[2018-10-19 06:18] LABS: BASOPHILS # (AUTO) 0.1 X10'3 (0-0.2); BASOPHILS % (AUTO) 0.6 % (0-1); EOSINOPHILS # (AUTO) 0.1 X10'3 (0-0.9); EOSINOPHILS % (AUTO) 0.8 % (0-6); HEMOGLOBIN 10.2 g/dl (12.0-16.0); LYMPHOCYTES # (AUTO) 0.9 X10'3 (1.1-4.8); LYMPHOCYTES % (AUTO) 6.5 % (21-51); MEAN CORPUSCULAR HEMOGLOBIN 38.3 PG (27.0-31.0); MEAN CORPUSCULAR HGB CONC 34.1 g/dL (33.0-36.5); MEAN CORPUSCULAR VOLUME 112.1 FL (78-98); MEAN PLATELET VOLUME 8.7 FL (7.4-10.4); MONOCYTES # (AUTO) 0.8 X10'3 (0-0.9); MONOCYTES % (AUTO) 5.9 % (2-12); NEUTROPHILS # (AUTO) 11.7 X10'3 (1.8-7.7); NEUTROPHILS % (AUTO) 86.2 % (42-75); PLATELET COUNT 325 X10'3 (140-440); RED BLOOD COUNT 2.68 X10'6 (4.20-5.60); RED CELL DISTRIBUTION WIDTH 15.3 % (11.5-14.5); WHITE BLOOD COUNT 13.6 X10'3 (4.5-11.0)
[2018-10-19 06:44] LABS: ALANINE AMINOTRANSFERASE 38 U/L (12-78); ALBUMIN 1.9 G/DL (3.4-5.0); ALBUMIN/GLOBULIN RATIO 0.7 (1.1-1.5); ALKALINE PHOSPHATASE 35 IU/L (46-116); ANION GAP 8 (8-16); ASPARTATE AMINO TRANSFERASE 24 U/L (10-37); BILIRUBIN,TOTAL 0.5 MG/DL (0.1-1.0); BLOOD UREA NITROGEN 9 MG/DL (7-18); BUN/CREATININE RATIO 20.9 (6.6-38.0); CALCIUM 7.7 MG/DL (8.5-10.1); CHLORIDE 105 MMOL/L (99-107); CREATININE 0.43 MG/DL (0.40-0.90); GLUCOSE 80 MG/DL (70-104); MAGNESIUM 1.8 MG/DL (1.5-2.4); POTASSIUM 3.7 MMOL/L (3.5-5.1); SODIUM 139 MMOL/L (135-145); TOTAL CARBON DIOXIDE 26.1 MMOL/L (24-32); TOTAL PROTEIN 4.7 G/DL (6.4-8.2); eGFR > 90 ML/MIN
[2018-10-19] MEDS: pantoprazole 40mg Tablet.DR PO SCH (07:59)
[2018-10-19] MEDS: cefpodoxime proxetil 100mg tablet PO SCH ×2 (07:59→19:20)
[2018-10-19] MEDS: apixaban 5mg tablet PO SCH ×2 (07:59→19:21)
[2018-10-19] MEDS: lactobacillus rhamnosus 10,000 MMU CELLS/CAPSULE PO SCH ×2 (07:59→19:21)
[2018-10-19] MEDS: thiamine 100mg tablet PO SCH (07:59)
[2018-10-19] MEDS: magnesium hydroxide 30ml (MOM) UD suspension PO SCH ×2 (08:00→19:21)
[2018-10-19] MEDS: K and/or MAG REPLACEMENT MC SCH (08:00)
[2018-10-19] MEDS: multivitamins, therapeutics tablet PO SCH (08:00)
[2018-10-19] MEDS: normal saline 1000ml 1,000 ML IV SCH ×2 (08:00→14:41)
--- NOTE | 2018-10-19 09:08 | NUR ---
PAGER ID: [phone] MESSAGE: [id number] Yenifer Belcher. Tele monitor AFIB, HR 130's off and on back to 110's. Do you want to order something for rate control? ANA [id number]
--- NOTE | 2018-10-19 10:10 | NUR ---
Problems reprioritized. Patient report given, questions answered & plan of care reviewed with aRT rn.
--- NOTE | 2018-10-19 10:10 | NUR ---
Patient in room PCU 3026. I have received report from SRUESH lópez and had the opportunity to ask questions and assume patient care.
--- NOTE | 2018-10-19 10:20 | NUR ---
Pt arrived on unit. All known belongings with pt. pt vss.
[2018-10-19] MEDS ORDERED: diltiazem 5mg/ml 5ml inj. IV ONE (10:40)
--- NOTE | 2018-10-19 11:00 | NUR ---
reviewed previous assessment. Agree with findings.
[2018-10-19] MEDS ORDERED: diltiazem-D5W 125mg/125ml 125 ML IV SCH (12:40)
[2018-10-19] MEDS ORDERED: diltiazem-NS 100mg/100ml 125 ML IV SCH (12:45)
[2018-10-19] MEDS ORDERED: diltiazem 30mg tablet PO SCH (14:00)
--- NOTE | 2018-10-19 14:12 | NUR ---
Spoke with MD regarding starting the cardizem given the Hypotension. MD stated that he was comfortable with this medication at this time.
[2018-10-19] MEDS ORDERED: digoxin 250mcg/ml 2ml ampule IV ONE ×2 (15:25→18:50)
--- NOTE | 2018-10-19 17:58 | NUR ---
Orientee documentation: I have reviewed and agree with all interventions, assessments performed and documented by SURESH Culver.
--- NOTE | 2018-10-19 18:33 | NUR ---
Problems reprioritized. Patient report given, questions answered & plan of care reviewed with SURESH Malcolm.
--- NOTE | 2018-10-19 18:37 | NUR ---
I have received report from Laureano RN and SURESH Culver and had the opportunity to ask questions and assume patient care.
[2018-10-20 02:00] VITALS: BP 96/66
[2018-10-20 06:10] LABS: BASOPHILS # (AUTO) 0.1 X10'3 (0-0.2); BASOPHILS % (AUTO) 0.6 % (0-1); EOSINOPHILS # (AUTO) 0.1 X10'3 (0-0.9); EOSINOPHILS % (AUTO) 0.6 % (0-6); HEMATOCRIT 29.7 % (35.0-45.0); HEMOGLOBIN 10.1 g/dl (12.0-16.0); LYMPHOCYTES % (AUTO) 7.4 % (21-51); MEAN CORPUSCULAR HEMOGLOBIN 38.3 PG (27.0-31.0); MEAN CORPUSCULAR HGB CONC 33.9 g/dL (33.0-36.5); MEAN CORPUSCULAR VOLUME 112.8 FL (78-98); MEAN PLATELET VOLUME 8.9 FL (7.4-10.4); MONOCYTES # (AUTO) 0.8 X10'3 (0-0.9); MONOCYTES % (AUTO) 5.9 % (2-12); NEUTROPHILS # (AUTO) 11.9 X10'3 (1.8-7.7); NEUTROPHILS % (AUTO) 85.5 % (42-75); PLATELET COUNT 327 X10'3 (140-440); RED BLOOD COUNT 2.63 X10'6 (4.20-5.60); RED CELL DISTRIBUTION WIDTH 15.4 % (11.5-14.5); WHITE BLOOD COUNT 13.8 X10'3 (4.5-11.0)
--- NOTE | 2018-10-20 06:23 | NUR ---
Problems reprioritized. Patient report given, questions answered & plan of care reviewed with Mone.
--- NOTE | 2018-10-20 06:25 | NUR ---
Patient in room PCU 3009. I have received report from Yun PRINCE and had the opportunity to ask questions and assume patient care.
[2018-10-20 06:35] LABS: ALANINE AMINOTRANSFERASE 27 U/L (12-78); ALBUMIN 1.7 G/DL (3.4-5.0); ALBUMIN/GLOBULIN RATIO 0.6 (1.1-1.5); ALKALINE PHOSPHATASE 44 IU/L (46-116); ANION GAP 10 (8-16); ASPARTATE AMINO TRANSFERASE 16 U/L (10-37); BILIRUBIN,TOTAL 0.4 MG/DL (0.1-1.0); BLOOD UREA NITROGEN 7 MG/DL (7-18); BUN/CREATININE RATIO 17.1 (6.6-38.0); CALCIUM 7.6 MG/DL (8.5-10.1); CHLORIDE 102 MMOL/L (99-107); CREATININE 0.41 MG/DL (0.40-0.90); GLUCOSE 87 MG/DL (70-104); MAGNESIUM 1.7 MG/DL (1.5-2.4); POTASSIUM 3.6 MMOL/L (3.5-5.1); SODIUM 136 MMOL/L (135-145); TOTAL CARBON DIOXIDE 24.4 MMOL/L (24-32); TOTAL PROTEIN 4.7 G/DL (6.4-8.2); eGFR > 90 ML/MIN
[2018-10-20 07:00] VITALS: BP 94/60
[2018-10-20] MEDS: ceFAZolin 1GM/D5W- ADD-VANTAGE 50 ML IV SCH ×2 (07:38)
[2018-10-20] MEDS: apixaban 5mg tablet PO SCH ×2 (07:39→19:25)
[2018-10-20] MEDS: pantoprazole 40mg Tablet.DR PO SCH (07:39)
[2018-10-20] MEDS: thiamine 100mg tablet PO SCH (07:39)
[2018-10-20] MEDS: cefpodoxime proxetil 100mg tablet PO SCH ×2 (07:39→19:24)
[2018-10-20] MEDS: lactobacillus rhamnosus 10,000 MMU CELLS/CAPSULE PO SCH ×2 (07:39→19:24)
[2018-10-20] MEDS: multivitamins, therapeutics tablet PO SCH (07:39)
[2018-10-20] MEDS: normal saline 1000ml 1,000 ML IV SCH ×3 (07:48→20:05)
[2018-10-20] MEDS: K and/or MAG REPLACEMENT MC SCH (08:00)
[2018-10-20] MEDS: magnesium hydroxide 30ml (MOM) UD suspension PO SCH ×2 (08:00→19:26)
[2018-10-20 08:01] LABS: PLATELET ESTIMATE NORMAL; TOTAL CELLS COUNTED 100
[2018-10-20] MEDS ORDERED: metoprolol tartrate 12.5mg (1/2 tablet) PO STA (08:10)
[2018-10-20] MEDS ORDERED: metoprolol tartrate 12.5mg (1/2 tablet) PO ONE (10:45)
[2018-10-20 11:00] VITALS: BP 113/63
[2018-10-20] MEDS: morphine 2 MG/ML inj. syringe IV PRN ×2 (11:28→19:25)
[2018-10-20] MEDS: HYDROcodone/acetaminophen 5mg/325mg tablet PO PRN (12:45)
[2018-10-20 15:00] VITALS: BP 85/63
[2018-10-20 18:00] VITALS: BP 100/74
--- NOTE | 2018-10-20 18:30 | NUR ---
Problems reprioritized. Patient report given, questions answered & plan of care reviewed with Ayana PRINCE.
[2018-10-20] MEDS: metoprolol tartrate 25mg tablet PO SCH (19:24)
[2018-10-20 23:00] VITALS: BP 93/63
[2018-10-21] VITALS (7 sets, daily range): BP systolic 86–110; BP diastolic 54–73
[2018-10-21] MEDS: normal saline 1000ml 1,000 ML IV SCH ×2 (05:44→16:28)
[2018-10-21] MEDS: multivitamins, therapeutics tablet PO SCH (07:56)
[2018-10-21] MEDS: lactobacillus rhamnosus 10,000 MMU CELLS/CAPSULE PO SCH ×2 (07:56→19:19)
[2018-10-21] MEDS: thiamine 100mg tablet PO SCH (07:56)
[2018-10-21] MEDS: pantoprazole 40mg Tablet.DR PO SCH (07:56)
[2018-10-21] MEDS: apixaban 5mg tablet PO SCH ×2 (07:56→19:19)
[2018-10-21] MEDS: cefpodoxime proxetil 100mg tablet PO SCH (07:56)
[2018-10-21] MEDS: magnesium hydroxide 30ml (MOM) UD suspension PO SCH ×2 (07:57→19:52)
[2018-10-21] MEDS: K and/or MAG REPLACEMENT MC SCH (08:00)
[2018-10-21] MEDS: metoprolol tartrate 25mg tablet PO SCH ×3 (08:00→19:19)
[2018-10-21] MEDS: HYDROcodone/acetaminophen 5mg/325mg tablet PO PRN (09:10)
[2018-10-21 11:03] LABS: ALANINE AMINOTRANSFERASE 21 U/L (12-78); ALBUMIN 1.5 G/DL (3.4-5.0); ALBUMIN/GLOBULIN RATIO 0.5 (1.1-1.5); ALKALINE PHOSPHATASE 45 IU/L (46-116); ANION GAP 6 (8-16); ASPARTATE AMINO TRANSFERASE 17 U/L (10-37); BILIRUBIN,TOTAL 0.4 MG/DL (0.1-1.0); BLOOD UREA NITROGEN 6 MG/DL (7-18); BUN/CREATININE RATIO 16.7 (6.6-38.0); CALCIUM 7.7 MG/DL (8.5-10.1); CHLORIDE 105 MMOL/L (99-107); CREATININE 0.36 MG/DL (0.40-0.90); GLUCOSE 94 MG/DL (70-104); MAGNESIUM 1.8 MG/DL (1.5-2.4); SODIUM 138 MMOL/L (135-145); TOTAL CARBON DIOXIDE 27.2 MMOL/L (24-32); TOTAL PROTEIN 4.6 G/DL (6.4-8.2); eGFR > 90 ML/MIN
[2018-10-21 11:04] LABS: BASOPHILS # (AUTO) 0.1 X10'3 (0-0.2); BASOPHILS % (AUTO) 0.9 % (0-1); EOSINOPHILS # (AUTO) 0.1 X10'3 (0-0.9); EOSINOPHILS % (AUTO) 1.3 % (0-6); HEMATOCRIT 27.7 % (35.0-45.0); HEMOGLOBIN 9.4 g/dl (12.0-16.0); LYMPHOCYTES % (AUTO) 9.9 % (21-51); MEAN CORPUSCULAR HEMOGLOBIN 37.9 PG (27.0-31.0); MEAN CORPUSCULAR HGB CONC 33.9 g/dL (33.0-36.5); MEAN CORPUSCULAR VOLUME 111.8 FL (78-98); MEAN PLATELET VOLUME 8.3 FL (7.4-10.4); MONOCYTES # (AUTO) 0.8 X10'3 (0-0.9); MONOCYTES % (AUTO) 7.7 % (2-12); NEUTROPHILS # (AUTO) 8.3 X10'3 (1.8-7.7); NEUTROPHILS % (AUTO) 80.2 % (42-75); PLATELET COUNT 331 X10'3 (140-440); POTASSIUM 3.3 MMOL/L (3.5-5.1); RED BLOOD COUNT 2.47 X10'6 (4.20-5.60); RED CELL DISTRIBUTION WIDTH 15.4 % (11.5-14.5); WHITE BLOOD COUNT 10.4 X10'3 (4.5-11.0)
[2018-10-21 11:29] LABS: PLATELET ESTIMATE NORMAL
[2018-10-21] MEDS: morphine 2 MG/ML inj. syringe IV PRN (11:47)
[2018-10-21] MEDS ORDERED: magnesium 2GM in 50ml NS 50 ML IV PRN (12:10)
[2018-10-21] MEDS ORDERED: potassium CL 10mEq/100ml bag 100 ML IV PRN (12:10)
[2018-10-21] MEDS ORDERED: potassium Cl 20 mEq SR tablet PO PRN (12:10)
[2018-10-21] MEDS ORDERED: magnesium 4gm in 100ml NS 100 ML IV PRN (12:10)
[2018-10-21] MEDS: potassium Cl 20 mEq SR tablet PO PRN ×3 (12:31→20:39)
--- NOTE | 2018-10-21 14:44 | NUR ---
Paged Dr. Gan regarding pts vitals. Dr. Gan will advise of new orders after consultation. PAGER ID: [phone] MESSAGE: [id number] Yenifer Belcher. ANA MARIAI BP 81/54 HR 120's. Thanks. Maribel Redmond, RN x [phone]
--- NOTE | 2018-10-21 15:01 | NUR ---
PRESSURE ULCER EDUCATION: DEFINITION: A pressure ulcer is an area of skin that breaks down when you stay in one position too long. The constant pressure against the skin reduces the blood flow to that area and the affected tissue dies. CAUSES: "Being bedridden or in a wheelchair "Fragile skin "Having a chronic condition, such as diabetes or vascular disease "Inability to move certain parts of your body without assistance "Older age "Incontinence of urine or stool SYMPTOMS: "A reddened area that DOES NOT turn white when pressed on - this can be the beginning of a pressure ulcer "A blister, deep sore or a crater - these can be advanced pressure ulcers FIRST AID: "Relieve the pressure on this area "Keep the area clean and dry "Call your primary doctor if you see any of the above symptoms "DO NOT massage the area "DO NOT use a donut shaped or ring shaped pillow- these actually interfere with the blood flow and cause complications PREVENTION: "Check for pressure ulcers everyday "Change position at least every two hours to relieve pressure "Use items that help relieve pressure- pillows, sheepskin, foam padding, and powders. "Keep skin clean and dry "Eat healthy well balanced meals "Exercise daily IF YOU SEE ANY OF THESE SYMPTOMS WHILE IN THE HOSPITAL - TELL YOUR NURSE IMMEDIATELY. IF YOU SEE ANY OF THESE SYMPTOMS WHILE AT HOME OR HAVE ANY QUESTIONS OR CONCERNS ABOUT PRESSURE ULCERS - CALL YOUR PRIMARY DOCTOR IMMEDIATELY. WOUND INFECTION EDUCATION PROVIDED BY WOUND CARE 1. Patient instructed to call their primary doctor, or go the ED immediately if any of the following symptoms occur: * Increased pain in wound * Increase in drainage from the wound * Redness in the skin surrounding the wound * Warmth in the skin surrounding the wound * Bleeding from the wound * Temperature of 101 or greater 2. If any of these occur while in the hospital tell a nurse immediately. Addendum: 10/21/18 at 1501 by Maritza Servin RN Amended: Links added.
[2018-10-21] MEDS ORDERED: digoxin 250mcg (0.25mg) tablet PO ONE (16:00)
[2018-10-21] MEDS: magnesium Cl slow-release 64mg tablet PO PRN (16:39)
--- NOTE | 2018-10-21 18:17 | NUR ---
Problems reprioritized. Patient report given, questions answered & plan of care reviewed with SURESH Diaz.
--- NOTE | 2018-10-21 18:18 | NUR ---
Orientee documentation: I have reviewed and agree with all interventions, assessments performed and documented by Maribel PRINCE. Orientee Medication Administration: For this medication-pass time frame, all medication were reviewed, dispensed, administered and documented per hospital policy by Maribel PRINCE
--- NOTE | 2018-10-21 18:37 | NUR ---
Patient in room PCU 3026. I have received report from Mone PRINCE and Maribel PRINCE and had the opportunity to ask questions and assume patient care.
[2018-10-21] MEDS: midodrine tablet 2.5 MG TABLET PO SCH ×2 (19:18→23:08)
[2018-10-21] MEDS ORDERED: digoxin 250mcg/ml 2ml ampule IV ONE (20:45)
[2018-10-22] VITALS (7 sets, daily range): BP systolic 90–118; BP diastolic 54–78
[2018-10-22] MEDS: normal saline 1000ml 1,000 ML IV SCH ×3 (02:33→22:36)
[2018-10-22] MEDS ORDERED: digoxin 250mcg/ml 2ml ampule IV ONE (02:45)
[2018-10-22] MEDS: HYDROcodone/acetaminophen 5mg/325mg tablet PO PRN ×4 (04:18→20:23)
[2018-10-22 05:47] LABS: BASOPHILS # (AUTO) 0.1 X10'3 (0-0.2); BASOPHILS % (AUTO) 0.9 % (0-1); EOSINOPHILS # (AUTO) 0.2 X10'3 (0-0.9); EOSINOPHILS % (AUTO) 2.4 % (0-6); HEMATOCRIT 28.1 % (35.0-45.0); HEMOGLOBIN 9.6 g/dl (12.0-16.0); LYMPHOCYTES # (AUTO) 1.3 X10'3 (1.1-4.8); LYMPHOCYTES % (AUTO) 14.2 % (21-51); MEAN CORPUSCULAR HEMOGLOBIN 38.7 PG (27.0-31.0); MEAN CORPUSCULAR HGB CONC 34.2 g/dL (33.0-36.5); MEAN CORPUSCULAR VOLUME 113.1 FL (78-98); MEAN PLATELET VOLUME 8.7 FL (7.4-10.4); MONOCYTES # (AUTO) 0.7 X10'3 (0-0.9); MONOCYTES % (AUTO) 8.3 % (2-12); NEUTROPHILS # (AUTO) 6.6 X10'3 (1.8-7.7); NEUTROPHILS % (AUTO) 74.2 % (42-75); PLATELET COUNT 358 X10'3 (140-440); RED BLOOD COUNT 2.48 X10'6 (4.20-5.60); RED CELL DISTRIBUTION WIDTH 15.5 % (11.5-14.5); WHITE BLOOD COUNT 8.9 X10'3 (4.5-11.0)
[2018-10-22 05:56] LABS: ALANINE AMINOTRANSFERASE 19 U/L (12-78); ALBUMIN 1.5 G/DL (3.4-5.0); ALBUMIN/GLOBULIN RATIO 0.5 (1.1-1.5); ALKALINE PHOSPHATASE 44 IU/L (46-116); ANION GAP 8 (8-16); ASPARTATE AMINO TRANSFERASE 12 U/L (10-37); BILIRUBIN,TOTAL 0.5 MG/DL (0.1-1.0); BLOOD UREA NITROGEN 5 MG/DL (7-18); BUN/CREATININE RATIO 12.2 (6.6-38.0); CHLORIDE 107 MMOL/L (99-107); CREATININE 0.41 MG/DL (0.40-0.90); GLUCOSE 86 MG/DL (70-104); MAGNESIUM 1.8 MG/DL (1.5-2.4); POTASSIUM 4.1 MMOL/L (3.5-5.1); SODIUM 141 MMOL/L (135-145); TOTAL CARBON DIOXIDE 26.4 MMOL/L (24-32); TOTAL PROTEIN 4.8 G/DL (6.4-8.2); eGFR > 90 ML/MIN
--- NOTE | 2018-10-22 06:30 | NUR ---
Patient in room PCU 3026. I have received report from Emily PRINCE and had the opportunity to ask questions and assume patient care.
--- NOTE | 2018-10-22 06:39 | NUR ---
Problems reprioritized. Patient report given, questions answered & plan of care reviewed with Alexa PRINCE and Elaina PRINCE.
--- NOTE | 2018-10-22 06:40 | NUR ---
Patient in room U 3026. I have received report from Emily PRINCE and had the opportunity to ask questions and assume patient care. Patient awake in bed. No complaints at this time.
[2018-10-22 07:00] LABS: PLATELET ESTIMATE NORMAL
[2018-10-22 07:01] LABS: LARGE PLATELETS FEW
[2018-10-22] MEDS: magnesium hydroxide 30ml (MOM) UD suspension PO SCH ×2 (08:00→19:31)
[2018-10-22] MEDS ORDERED: digoxin 125mcg (0.125mg) tablet PO SCH (08:00)
[2018-10-22] MEDS: thiamine 100mg tablet PO SCH (08:04)
[2018-10-22] MEDS: pantoprazole 40mg Tablet.DR PO SCH (08:05)
[2018-10-22] MEDS: lactobacillus rhamnosus 10,000 MMU CELLS/CAPSULE PO SCH ×2 (08:05→19:29)
[2018-10-22] MEDS: midodrine tablet 2.5 MG TABLET PO SCH ×2 (08:06→16:39)
[2018-10-22] MEDS: metoprolol tartrate 25mg tablet PO SCH ×2 (08:06→19:30)
[2018-10-22] MEDS: apixaban 5mg tablet PO SCH ×2 (08:06→19:29)
[2018-10-22] MEDS: multivitamins, therapeutics tablet PO SCH (08:06)
[2018-10-22] MEDS: magnesium Cl slow-release 64mg tablet PO PRN (08:23)
[2018-10-22] MEDS: K and/or MAG REPLACEMENT MC SCH (08:32)
[2018-10-22] MEDS ORDERED: digoxin 125mcg (0.125mg) tablet PO ONE (13:00)
--- NOTE | 2018-10-22 16:00 | NUR ---
Wound consult: Pt admit w/ L hip fx s/p fall. S/p fx repair. 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 RD provided written/verbal high protein ed w/ RD contact information provided. Pt dislikes milk/spinach and would like chocolate ensure high protein w/ dinners; MD and dietary notified. Pending MD verification prior to sending on meals. Pt PO 50-75% meals no drinking milks. Receiving thiamin/MVI given MCV 113 and hx prior etoh. LBM 8/5. Will continue to monitor for additional protein needs. Rec: 1. continue heart healthy diet per MD 2. chocolate ensure high protein at dinners; pending MD verification prior to sending w/ tray 3. MVI/thiamin given etoh hx 4. wt per rx Addendum: 10/22/18 at [address] Amended: Links added.
[2018-10-22] MEDS ORDERED: lactose-reduced food (Ensure High Protein) 237ml bottle PO SCH (17:00)
--- NOTE | 2018-10-22 18:22 | NUR ---
Problems reprioritized. Patient report given, questions answered & plan of care reviewed with Emily PRINCE.
--- NOTE | 2018-10-22 18:22 | NUR ---
Patient in room PCU 3026. I have received report from Alexa PRINCE and Elaina PRINCE and had the opportunity to ask questions and assume patient care.
--- NOTE | 2018-10-22 18:33 | NUR ---
Problems reprioritized. Patient report given, questions answered & plan of care reviewed with Emily PRINCE. Patient stable at transfer of care.
[2018-10-23] MEDS: midodrine tablet 2.5 MG TABLET PO SCH ×2 (00:28→09:03)
[2018-10-23 02:00] VITALS: BP 90/63
--- NOTE | 2018-10-23 06:20 | NUR ---
Problems reprioritized. Patient report given, questions answered & plan of care reviewed with Alexa PRINCE and Elaina PRINCE.
--- NOTE | 2018-10-23 06:34 | NUR ---
Patient in room PCU 3026. I have received report from SURESH Diaz and had the opportunity to ask questions and assume patient care. Patient awake in bed with no complaints at this time. All immediate needs met.
--- NOTE | 2018-10-23 06:38 | NUR ---
Patient in room PCU 3026. I have received report from Emily PRINCE and had the opportunity to ask questions and assume patient care.
[2018-10-23 07:00] VITALS: BP 105/67
[2018-10-23] MEDS: magnesium hydroxide 30ml (MOM) UD suspension PO SCH (08:00)
[2018-10-23] MEDS: thiamine 100mg tablet PO SCH (08:00)
[2018-10-23] MEDS: K and/or MAG REPLACEMENT MC SCH (08:00)
[2018-10-23] MEDS ORDERED: digoxin 250mcg/ml 2ml ampule IV SCH (08:00)
[2018-10-23] MEDS ORDERED: digoxin 250mcg (0.25mg) tablet PO SCH (08:00)
[2018-10-23] MEDS: normal saline 1000ml 1,000 ML IV SCH (08:05)
[2018-10-23] MEDS ORDERED: DIGO250T PO (08:42)
[2018-10-23] MEDS ORDERED: APIX5TAB3 PO (08:42)
[2018-10-23] MEDS ORDERED: MIDO2.5T14 PO (08:42)
[2018-10-23] MEDS ORDERED: METO25TA6 PO (08:42)
[2018-10-23] MEDS: magnesium Cl slow-release 64mg tablet PO PRN (09:03)
[2018-10-23] MEDS: lactobacillus rhamnosus 10,000 MMU CELLS/CAPSULE PO SCH (09:03)
[2018-10-23] MEDS: multivitamins, therapeutics tablet PO SCH (09:04)
[2018-10-23] MEDS: apixaban 5mg tablet PO SCH (09:04)
[2018-10-23] MEDS: metoprolol tartrate 25mg tablet PO SCH (09:04)
[2018-10-23] MEDS: pantoprazole 40mg Tablet.DR PO SCH (09:05)
[2018-10-23 11:00] VITALS: BP 114/78
--- NOTE | 2018-10-23 14:05 | NUR ---
Stable for transfer to [facility]. Report given to receiving nurse Kirsten; all inquiries answered. Intrajugular Central IV discontinued; cannula intact; procedure tolerated well. Telemetry monitoring discontinued. All personal belongings sent with pt. Pt states she was admitted with a wallet and last had it in ED. Unable to locate. Wallet was not on pt. when transferred to U. Transferred from U to [facility] via [facility] accompanied by [facility] personnel. Addendum: 10/23/18 at 1550 by Elaina Licea RN Pt. transferred with zamudio cath. in place.
--- NOTE | 2018-10-23 14:05 | NUR ---
Patient refused discharge wound pictures due to discomfort. Wound photos were taken on 10/22/18 at 10:00am and patient had difficulty tolerating position changes.
--- NOTE | 2018-10-23 17:31 | NUR ---
Tara documentation: I have reviewed and agree with all interventions, assessments performed and documented by Elaina PRINCE. Addendum: 10/23/18 at 1732 by Alexa Woods RN Orientliz Medication Administration: For this medication-pass time frame, all medication were reviewed, dispensed, administered and documented per hospital policy by Elaina PRINCE.
== END 2018-10-23 14:05 | DRG 470 ==
LOC: ER 15:47 → ORTHO 4S 20:27 → PCU 3S 10-19 10:32
PROVIDERS: ADMIT Family Medicine; ATTEND Family Medicine
PROC: 02HV33Z Insertion of Infusion Device into Superior Vena Cava, Percutaneous Approach (ICD-10-PCS; 2018-10-18)
PROC: 0SRS0J9 Replacement of Left Hip Joint, Femoral Surface with Synthetic Substitute, Cemented, Open Approach (ICD-10-PCS; principal; 2018-10-18 12:18)
DX: S72.042A Displaced fracture of base of neck of left femur, initial encounter for closed fracture (principal); D62 Acute posthemorrhagic anemia; G62.1 Alcoholic polyneuropathy; R00.0 Tachycardia, unspecified; I10 Essential (primary) hypertension; I48.91 Unspecified atrial fibrillation; J44.9 Chronic obstructive pulmonary disease, unspecified; W18.39XA Other fall on same level, initial encounter; F10.20 Alcohol dependence, uncomplicated; E87.6 Hypokalemia; Z60.2 Problems related to living alone; I08.3 Combined rheumatic disorders of mitral, aortic and tricuspid valves; E78.5 Hyperlipidemia, unspecified; I95.9 Hypotension, unspecified; E83.42 Hypomagnesemia; F43.9 Reaction to severe stress, unspecified; D72.823 Leukemoid reaction; L89.159 Pressure ulcer of sacral region, unspecified stage; Z90.710 Acquired absence of both cervix and uterus; Z90.722 Acquired absence of ovaries, bilateral; Z71.6 Tobacco abuse counseling; Z79.01 Long term (current) use of anticoagulants; Z79.899 Other long term (current) drug therapy; Z87.891 Personal history of nicotine dependence; Y93.89 Activity, other specified; Y92.098 Other place in other non-institutional residence as the place of occurrence of the external cause; Y99.8 Other external cause status
CPT/HCPCS: 36415; 71045; 72170; 73501; 73502; 80053; 81001; 82948; 83605; 83735; 84145; 84484; 85025; 85610; 85730; 86885; 86900; 86901; 87081; 87088; 93005; 93306; 97110; 97161; 97530; 99285; A6222; A6258; A6449; A6454; A7000; C1713; C1776; G0378; J0690; J1160; J1644; J2250; J2270; J2370; J3010; J3490; J7030; J7120

== ENCOUNTER 2018-11-07 09:58 | Emergency (ER) | payer MEDICARE ==
[~2018-11-07] VITALS: Ht 172.7 cm; Wt 75.0 kg
[~2018-11-07 09:58] MED LIST changes: +ACET-2119 PO; +APIX5TAB3 PO; +BISA10SU60 PR; +DIGO250T PO; -ENAL20TA PO; +MAGN400O6 PO; +METO25TA6 PO; +MIDO2.5T14 PO; +MULT-933 PO; +NA P133E4 RC; +PANT-47 PO; +THIA100T66 PO
[2018-11-07] MEDS ORDERED: HYDROcodone/acetaminophen 10/325mg tab PO ONE (11:40)
[2018-11-07 11:56] LABS: BASOPHILS # (AUTO) 0.1 X10'3 (0-0.2); BASOPHILS % (AUTO) 0.9 % (0-1); EOSINOPHILS # (AUTO) 0.3 X10'3 (0-0.9); EOSINOPHILS % (AUTO) 2.4 % (0-6); HEMATOCRIT 37.2 % (35.0-45.0); HEMOGLOBIN 12.5 g/dl (12.0-16.0); LYMPHOCYTES # (AUTO) 1.7 X10'3 (1.1-4.8); LYMPHOCYTES % (AUTO) 13.1 % (21-51); MEAN CORPUSCULAR HEMOGLOBIN 34.5 PG (27.0-31.0); MEAN CORPUSCULAR HGB CONC 33.5 g/dL (33.0-36.5); MEAN CORPUSCULAR VOLUME 102.9 FL (78-98); MEAN PLATELET VOLUME 8.5 FL (7.4-10.4); MONOCYTES # (AUTO) 1.5 X10'3 (0-0.9); MONOCYTES % (AUTO) 11.6 % (2-12); NEUTROPHILS # (AUTO) 9.4 X10'3 (1.8-7.7); PLATELET COUNT 504 X10'3 (140-440); RED BLOOD COUNT 3.62 X10'6 (4.20-5.60); RED CELL DISTRIBUTION WIDTH 17.9 % (11.5-14.5); WHITE BLOOD COUNT 13.1 X10'3 (4.5-11.0)
[2018-11-07 12:12] LABS: ALANINE AMINOTRANSFERASE 17 U/L (12-78); ALBUMIN 2.3 G/DL (3.4-5.0); ALBUMIN/GLOBULIN RATIO 0.6 (1.1-1.5); ALKALINE PHOSPHATASE 75 IU/L (46-116); ANION GAP 9 (8-16); ASPARTATE AMINO TRANSFERASE 22 U/L (10-37); BILIRUBIN,TOTAL 0.5 MG/DL (0.1-1.0); BLOOD UREA NITROGEN 8 MG/DL (7-18); BUN/CREATININE RATIO 14.8 (6.6-38.0); CALCIUM 8.5 MG/DL (8.5-10.1); CHLORIDE 100 MMOL/L (99-107); CREATININE 0.54 MG/DL (0.40-0.90); GLUCOSE 84 MG/DL (70-104); SODIUM 135 MMOL/L (135-145); TOTAL CARBON DIOXIDE 25.6 MMOL/L (24-32); TOTAL PROTEIN 6.4 G/DL (6.4-8.2); eGFR > 90 ML/MIN
[2018-11-07 12:13] LABS: POTASSIUM 4.4 MMOL/L (3.5-5.1)
[2018-11-07 12:36] LABS: CLARITY,URINE CLOUDY (Clear); COLOR,URINE YELLOW (Yellow); GLUCOSE, URINE NEGATIVE (Neg); KETONES,URINE 15 mg/dl (Neg); LEUKOCYTE ESTERASE ,URINE MODERATE (Neg); NITRITES, URINE NEGATIVE (Neg); OCCULT BLOOD,URINE MODERATE (Neg); PH,URINE 5.5 (4.8-8.0); PROTEIN,URINE TRACE mg/dl (Neg); UROBILINOGEN,URINE 0.2 E.U/dL (0.2-1.0)
[2018-11-07 12:41] LABS: UA COLLECTION TYPE FOLEY CATH
[2018-11-07 12:43] LABS: WBC,URINE TNTC /HPF (0-4)
[2018-11-07 12:45] LABS: YEAST MODERATE /HPF (NEGATIVE)
[2018-11-07 12:48] LABS: BACTERIA,URINE 2+ /HPF (Neg); SQUAMOUS EPITHELIAL CELL,UR FEW /LPF (FEW)
[2018-11-07] MEDS ORDERED: normal saline 1000ml 1,000 ML IV ONE (12:50)
[2018-11-07] MEDS ORDERED: iohexol 300mg/ml 100ml inj. ONE (13:09)
[2018-11-07] MEDS ORDERED: SULF1TAB49 PO (14:34)
[2018-11-07] MEDS ORDERED: CEPH-572 PO (14:34)
[2018-11-07] MEDS ORDERED: CefTRIAXone 2gm/D5W 50ml 50 ML IV ONE (14:35)
--- NOTE | 2018-11-07 15:42 | NUR ---
SPOKE WITH DENISE AT [facility] TO SET UP TRANSPORTATION THROUGH [facility], SPOKE WITH KUMAR AT [facility] TO GIVE REPORT.
[2018-11-07 16:12] VITALS: BP 102/58
== END 2018-11-07 16:14 | disposition home or self-care (01) ==
LOC: ER 09:58
DX: T81.40XA Infection following a procedure, unspecified, initial encounter (principal); N39.0 Urinary tract infection, site not specified; I10 Essential (primary) hypertension; Z79.2 Long term (current) use of antibiotics; Z79.899 Other long term (current) drug therapy; Y83.8 Other surgical procedures as the cause of abnormal reaction of the patient, or of later complication, without mention of misadventure at the time of the procedure; Y92.89 Other specified places as the place of occurrence of the external cause
CPT/HCPCS: 36415; 71045; 73502; 73701; 80053; 81001; 83605; 84145; 85025; 87077; 87088; 87186; 93005; 96365; 99285; J0696; J7030; Q9967